=== PATIENT | female | born 1970 | race Caucasian/White ===

== ENCOUNTER 2017-10-21 19:28 | Emergency (ER) | payer BC ==
[2017-10-21] MEDS ORDERED: SILVER SULFADIAZINE 1% 400 GM CR TOP (21:41)
[2017-10-21] MEDS: SILVER SULFADIAZINE 1% 25 GM CR TOP (22:01)
== END 2017-10-21 22:30 | disposition home or self-care (01) ==
LOC: FTE 19:28
DX: T24.212A Burn of second degree of left thigh, initial encounter (principal); E03.9 Hypothyroidism, unspecified; X11.8XXA Contact with other hot tap-water, initial encounter; Y92.9 Unspecified place or not applicable
CPT/HCPCS: 16020; 99283-25